=== PATIENT | male | born 1995 | race Caucasian/White ===

== ENCOUNTER 2019-10-20 15:00 | Emergency (ER) | payer OTHER ==
[~2019-10-20] VITALS: Ht 177.8 cm; Wt 59.1 kg
[2019-10-20] MEDS ORDERED: IV NORMAL SALINE 1,000ML 1,000 ML IV SCH (15:40)
--- NOTE | 2019-10-20 15:40 | PHYS DOC ---
Past History Past Medical History: No Pertinent History Past Surgical History: No Surgical History Alcohol Use: None Adult General Chief Complaint Chief Complaint: ABDOMINAL PAIN HPI HPI Patient is a 23 year old male without history of medical problem who presents with complaints of abdominal pain. Patient complains of constant epigastric sharp pain with radiation to right upper quadrant for the last 5 days that getting worse after eating and rated his pain 10 over 10. Patient complaining of episodes of nausea and 2 episodes of vomiting for the last 5 days and denies diarrhea, fever and chills, urinary symptoms, history of the same pain. Patient complaining of decrease of appetite without change of his weight. Patient was seen at urgent care today and sent to ER for evaluation Review of Systems Review of Systems Constitutional: Denies fever or chills [] Eyes: Denies change in visual acuity, redness, or eye pain [] HENT: Denies nasal congestion or sore throat [] Respiratory: Denies cough or shortness of breath [] Cardiovascular: No additional information not addressed in HPI [] GI: Reports abdominal pain, nausea, vomiting, denies bloody stools or diarrhea [] : Denies dysuria or hematuria [] Musculoskeletal: Denies back pain or joint pain [] Integument: Denies rash or skin lesions [] Neurologic: Denies headache, focal weakness or sensory changes [] Endocrine: Denies polyuria or polydipsia [] All other systems were reviewed and found to be within normal limits, except as documented in this note. Physical Exam Physical Exam Constitutional: Well developed, well nourished, mild distress, non-toxic appearance. [] HENT: Normocephalic, atraumatic, moist oral mucosa. Eyes: PERRLA, EOMI, conjunctiva normal, no discharge. [] Neck: Normal range of motion, no tenderness, supple, no stridor. [] Cardiovascular:Heart rate regular rhythm, no murmur [] Lungs & Thorax: Bilateral breath sounds clear to auscultation [] Abdomen: Bowel sounds normal, soft, right upper quadrant guarding, no tenderness, no masses, no pulsatile masses. [] Skin: Warm, dry, no erythema, no rash. [] Back: No tenderness, no CVA tenderness. [] Extremities: No tenderness, no cyanosis, no clubbing, ROM intact, no edema. [] Neurologic: Alert and oriented X 3, no focal deficits noted. [] Psychologic: Affect normal, judgement normal, mood normal. [] Current Patient Data Vital Signs Vital Signs Date Time Temp Pulse Resp B/P (MAP) Pulse Ox O2 Delivery O2 Flow Rate FiO2 10/20/19 15:28 98.1 78 16 100 Room Air EKG EKG [] Radiology/Procedures Radiology/Procedures [][address] [address] IMAGING REPORT Signed PATIENT: KIKE RIOS ACCOUNT: [id number] : 1995 LOCATION: ER AGE: 23 SEX: M EXAM STATUS: PRE ER ORD. PHYSICIAN: COLLIN MADRID MD REASON: right upper quadrant pain PROCEDURE: ABDOMEN LTD ABDOMEN LTD History: Right upper quadrant pain. Comparison: None. Technique: Transabdominal ultrasound images are obtained of the right upper quadrant. Findings: Visualized pancreas is not well seen due to overlying bowel gas. Liver is normal in echogenicity. Right hepatic lobe measures 15.5 cm. Portal flow is hepatopedal. Gallbladder has an unremarkable appearance. Common bile duct measures 1.4 mm in diameter. The right kidney measures 10.7 x 4.1 x 3.3 cm. No hydronephrosis. Visualized portions of the aorta and IVC have normal caliber. IMPRESSION: 1. Unremarkable right upper quadrant ultrasound. Electronically signed by: Bayron Das DO (10/20/2019 4:01 PM) [id number] DICTATED AND SIGNED BY: BAYRON DAS DO DATE: 10/20/19 1601 CC: COLLIN MADRID MD; PCP,UNKNOWN ~ Course & Med Decision Making Course & Med Decision Making Pertinent Labs and Imaging studies reviewed. 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 Patient had unremarkable physical exam and labs and ultrasound of gallbladder. Patient felt better with treatment in ER. Patient was advised to follow-up with his primary care radha ellisian if not getting better for further evaluation. discharge: I've spoken with the patient and/or caregivers. I've explained the patient's condition, diagnosis and treatment plan based on information available to me at this time. I've answered the patient's and/or caregivers questions and addressed any concerns. The patient and/or caregivers have a good understanding the patient's diagnosis, condition and treatment plan as can be expected at this point. Vital signs have been stabilized. The patient's condition is stable for discharge from the emergency department. The patient will pursue further outpatient evaluation with her primary care provider or other designated consulting physician as outlined in the discharge instructions. Patient and/or caregivers are agreeable to this plan of care and follow-up instructions have been explained in detail. The patient and/or caregivers have received these instructions in written format and expressed understanding of these discharge instructions. The patient and her caregivers are aware that if any significant change in condition or worsening of symptoms should prompt him to immediately return to this of the closest emergency department. If an emergent department is not readily available I would en courage him to call 911. Nia Disclaimer Dragmary jane Disclaimer This electronic medical record was generated, in whole or in part, using a voice recognition dictation system. Departure Departure: Impression: Primary Impression: Epigastric pain Disposition: HOME, SELF-CARE (at 1746) Condition: STABLE Referrals: PCP,UNKNOWN (PCP) Patient Instructions: Abdominal Pain, Nausea and Vomiting Additional Instructions: Drink plenty of liquids Follow-up with your primary care physician in 3-5 days Return to ER if not getting better Scripts Ondansetron Hcl (ZOFRAN) 4 Mg Tablet 1 TAB PO Q6HRS for nausea and vomiting, #12 TAB Prov: COLLIN MADRID MD 10/20/19 Ranitidine Hcl (ZANTAC) 150 Mg Tablet 1 TAB PO BID for dyspepcia, #14 TAB 0 Refills Prov: COLLIN MADRID MD 10/20/19 COLLIN MADRID MD Oct 20, 2019 15:40
[2019-10-20] MEDS ORDERED: FAMOTIDINE 20 MG/2 ML VIAL IVP ONE (15:45)
[2019-10-20] MEDS ORDERED: ONDANSETRON PF 4 MG/2 ML VIAL. IVP ONE (15:45)
[2019-10-20] MEDS ORDERED: FAMOTIDINE 20 MG/2 ML VIAL ONE (16:04)
[2019-10-20] MEDS ORDERED: ONDANSETRON PF 4 MG/2 ML VIAL. ONE (16:04)
--- NOTE | 2019-10-20 16:04 | RAD ---
ABDOMEN LTD History: Right upper quadrant pain. Comparison: None. Technique: Transabdominal ultrasound images are obtained of the right upper quadrant. Findings: Visualized pancreas is not well seen due to overlying bowel gas. Liver is normal in echogenicity. Right hepatic lobe measures 15.5 cm. Portal flow is hepatopedal. Gallbladder has an unremarkable appearance. Common bile duct measures 1.4 mm in diameter. The right kidney measures 10.7 x 4.1 x 3.3 cm. No hydronephrosis. Visualized portions of the aorta and IVC have normal caliber. IMPRESSION: 1. Unremarkable right upper quadrant ultrasound. Electronically signed by: Bayron Das DO (10/20/2019 4:01 PM) [id number]
[2019-10-20 16:38] LABS: BASO % 1 % (0-3); EOS # 0.1 x10^3/uL (0.0-0.7); EOS % 2 % (0-3); HEMOGLOBIN 15.5 g/dL (13.0-17.5); LYMPH % 17 % (24-48); MEAN CORPUSCULAR HEMOGLOBIN 30 pg (25-35); MEAN CORPUSCULAR HGB CONC 34 g/dL (31-37); MEAN CORPUSCULAR VOLUME 89 fL (79-100); MONO # 0.8 x10^3/uL (0.0-1.1); MONO % 14 % (0-9); NEUT % 67 % (31-73); PLATELET COUNT 248 x10^3/uL (140-400); RED BLOOD COUNT 5.19 x10^6/uL (4.30-5.70); RED CELL DISTRIBUTION WIDTH 12.7 % (11.5-14.5)
[2019-10-20 16:43] LABS: CALCIUM 9.6 mg/dL (8.5-10.1); GFR 93.4; POTASSIUM 3.9 mmol/L (3.5-5.1)
[2019-10-20 16:49] LABS: TOTAL BILIRUBIN 0.8 mg/dL (0.2-1.0); TOTAL PROTEIN 8.2 g/dL (6.4-8.2)
[2019-10-20] MEDS ORDERED: RANI-376 PO (17:49)
[2019-10-20] MEDS ORDERED: ONDA4TAB7 PO (17:49)
== END 2019-10-20 17:56 | disposition home or self-care (01) ==
LOC: ER 15:00
DX: R10.13 Epigastric pain (principal); R11.2 Nausea with vomiting, unspecified; R10.11 Right upper quadrant pain
CPT/HCPCS: 36415; 76705; 80053; 83690; 85025; 96361; 96374; 96375; 99284; J2405; J3490; J7030

== ENCOUNTER 2019-11-24 17:20 | Emergency (ER) | payer OTHER ==
[~2019-11-24] VITALS: Ht 182.9 cm; Wt 56.2 kg
[~2019-11-24 17:20] MED LIST: ONDA4TAB7 PO; RANI-376 PO
[2019-11-24] MEDS ORDERED: ONDANSETRON PF 4 MG/2 ML VIAL. ONE (17:37)
[2019-11-24] MEDS ORDERED: IV NORMAL SALINE 1,000ML 1,000 ML IV ONE (18:00)
[2019-11-24] MEDS ORDERED: ONDANSETRON PF 4 MG/2 ML VIAL. IVP ONE (18:00)
--- NOTE | 2019-11-24 18:04 | RAD ---
Exam: Chest one view INDICATION: Short of air TECHNIQUE: Frontal view of the chest Comparisons: None FINDINGS: The cardiomediastinal silhouette and pulmonary vessels are within normal limits. The lung and pleural spaces are clear. IMPRESSION: No acute cardiopulmonary process. Electronically signed by: Rosie Huddleston MD (11/24/2019 6:01 PM) [id number]
[2019-11-24 18:09] LABS: BASO % 1 % (0-3); EOS # 0.1 x10^3/uL (0.0-0.7); EOS % 1 % (0-3); HEMATOCRIT 39.3 % (39.0-53.0); HEMOGLOBIN 13.1 g/dL (13.0-17.5); LYMPH # 1.2 x10^3/uL (1.0-4.8); LYMPH % 17 % (24-48); MEAN CORPUSCULAR HEMOGLOBIN 28 pg (25-35); MEAN CORPUSCULAR HGB CONC 33 g/dL (31-37); MEAN CORPUSCULAR VOLUME 84 fL (79-100); MONO # 1.1 x10^3/uL (0.0-1.1); MONO % 15 % (0-9); NEUT % 67 % (31-73); PLATELET COUNT 355 x10^3/uL (140-400); RED BLOOD COUNT 4.71 x10^6/uL (4.30-5.70); RED CELL DISTRIBUTION WIDTH 12.4 % (11.5-14.5); WHITE BLOOD COUNT 7.5 x10^3/uL (4.0-11.0)
[2019-11-24 18:14] LABS: CALCIUM 9.6 mg/dL (8.5-10.1); CREATININE 0.9 mg/dL (0.7-1.3); GFR 104.6; POTASSIUM 3.7 mmol/L (3.5-5.1)
--- NOTE | 2019-11-24 18:15 | PHYS DOC ---
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 No fever. Symptom onset was approximately one week ago. Chest pain is worse with deep breathing. No history of asthma. No lower abdominal pain. No other acute symptoms or complaints.[] Review of Systems Review of Systems ROS as per HPI All other systems were reviewed and found to be within normal limits, except as documented in this note. Current Medications Current Medications Current Medications Medications (Trade) Dose Ordered Sig/Catalina Start Time Stop Time Status Last Admin Dose Admin Ondansetron HCl (Zofran) 4 mg STK-MED ONCE 11/24/19 17:37 11/24/19 17:37 DC Sodium Chloride 1,000 ml @ 1,000 mls/hr 1X ONCE 11/24/19 18:00 11/24/19 18:59 11/24/19 17:48 1,000 MLS/HR Allergies Allergies Allergies Coded Allergies Type Severity Reaction Last Updated Verified No Known Drug Allergies 11/24/19 No Physical Exam Physical Exam Constitutional: Well developed, well nourished, no acute distress, non-toxic appearance. [] HENT: Normocephalic, atraumatic, bilateral external ears normal, oropharynx moist, nose normal. [] Eyes: PERRLA, EOMI, conjunctiva normal. [] Neck: Normal range of motion, no tenderness, supple. [] Cardiovascular:Heart rate regular rhythm, no murmur [] Lungs & Thorax: Bilateral breath sounds clear. [] Abdomen: Bowel sounds normal, soft, no tenderness. [] Skin: Warm, dry, no erythema. [] Back: No tenderness. [] Extremities: No tenderness, no edema. [] Neurologic: Alert and oriented X 3, normal motor function, normal sensory function, no focal deficits noted. [] Psychologic: Affect normal, judgement normal, mood normal. [] Current Patient Data Vital Signs Vital Signs Date Time Temp Pulse Resp B/P (MAP) Pulse Ox O2 Delivery O2 Flow Rate FiO2 11/24/19 18:08 70 18 157/88 (111) 100 Room Air 11/24/19 17:26 98.9 Lab Results Laboratory Tests Test 11/24/19 17:45 White Blood Count 7.5 x10^3/uL (4.0-11.0) Red Blood Count 4.71 x10^6/uL (4.30-5.70) Hemoglobin 13.1 g/dL (13.0-17.5) Hematocrit 39.3 % (39.0-53.0) Mean Corpuscular Volume 84 fL (79-100) Mean Corpuscular Hemoglobin 28 pg (25-35) Mean Corpuscular Hemoglobin Concent 33 g/dL (31-37) Red Cell Distribution Width 12.4 % (11.5-14.5) Platelet Count 355 x10^3/uL (140-400) Neutrophils (%) (Auto) 67 % (31-73) Lymphocytes (%) (Auto) 17 % (24-48) L Monocytes (%) (Auto) 15 % (0-9) H Eosinophils (%) (Auto) 1 % (0-3) Basophils (%) (Auto) 1 % (0-3) Neutrophils # (Auto) 5.0 x10^3uL (1.8-7.7) Lymphocytes # (Auto) 1.2 x10^3/uL (1.0-4.8) Monocytes # (Auto) 1.1 x10^3/uL (0.0-1.1) Eosinophils # (Auto) 0.1 x10^3/uL (0.0-0.7) Basophils # (Auto) 0.0 x10^3/uL (0.0-0.2) EKG EKG [] Radiology/Procedures Radiology/Procedures [CXR: NAD] Course & Med Decision Making Course & Med Decision Making Pertinent Labs and Imaging studies reviewed. (See chart for details) [Work up in progress. Care endorsed to oncoming ERP at 18:00] Dragon Disclaimer Dragon Disclaimer This electronic medical record was generated, in whole or in part, using a voice recognition dictation system. Departure Departure: Disposition: 01 HOME/RESIDENCE PRIOR TO ADM Condition: GLADYS HILL DO Nov 24, 2019 18:15
[2019-11-24 18:19] LABS: ALBUMIN 3.2 g/dL (3.4-5.0); ALBUMIN/GLOBULIN RATIO 0.6 (1.0-1.7); TOTAL BILIRUBIN 0.7 mg/dL (0.2-1.0); TOTAL PROTEIN 8.5 g/dL (6.4-8.2)
[2019-11-24 18:25] LABS: BILIRUBIN,URINE NEG (NEG); CLARITY,URINE CLEAR; COLOR,URINE YELLOW; GLUCOSE,URINE NEG (NEG)
[2019-11-24 18:26] LABS: BACTERIA,URINE 0 /HPF (0-FEW); NITRITE,URINE NEG (NEG); RBC,URINE RARE /HPF (0-2); SQUAMOUS EPITHELIAL CELL,UR OCC /LPF; UROBILINOGEN,URINE 0.2 mg/dL (0.2 mg/dL); WBC,URINE 0 /HPF (0-4)
--- NOTE | 2019-11-24 18:26 | EKG ---
[address] [address] Test Date: 2019-11-24 Test Time: 18:11:58 Pat Name: KIKE RIOS Department: Room: Gender: M Brush [employer]her: : 1995 Requested By: GLADYS HEMPHILL Order Number: [id number] Reading MD: Greg Sequeira MD Measurements Intervals Newborn Rate: 89 P: 62 MA: 128 QRS: 85 QRSD: 82 T: 39 QT: 330 QTc: 402 Interpretive Statements SINUS RHYTHM Electronically Signed On 11-26-2019 8:37:56 CDT by Greg Sequeira MD
[2019-11-24] MEDS ORDERED: CONTRAST GIVEN MC PRN (18:30)
[2019-11-24] MEDS ORDERED: IOHEXOL 350 MG/ML 100 ML VIAL. IV ONE (18:45)
--- NOTE | 2019-11-24 19:08 | RAD ---
Exam: CT of chest, abdomen and pelvis with contrast INDICATION: Right-sided chest and abdominal pain, radiating to back of neck TECHNIQUE: Sequential axial images through the chest, abdomen and pelvis obtained following the administration of 98 mL of Isovue-370 IV contrast. Sagittal and coronal reformatted images were reconstructed from the axial data and reviewed. 3-D reformatted images were reconstructed from the axial data and reviewed. Comparisons: None FINDINGS: Visualized portions of the thyroid are unremarkable. Prominent right hilar, subcarinal and right paratracheal lymphadenopathy is noted. Heart size is normal. No pericardial effusion. Thoracic aorta has a normal course and caliber. Pulmonary artery is nonenlarged. No pulmonary embolus identified within the main, lobar or segmental pulmonary arteries are identified. Airways are patent. No consolidation or pneumothorax. No suspicious lung nodules. No pleural effusion or thickening. Hypoattenuating subcentimeter lesion within the right hepatic lobe incompletely characterized on this study. Spleen, pancreas, gallbladder and adrenals are unremarkable. Kidneys demonstrate symmetric enhancement. No perinephric inflammation or hydronephrosis. No renal or ureteral calculi are identified. Bladder is decompressed not well evaluated. Prostate is not enlarged. Large and small bowel are unremarkable. Appendix is not identified. No free intra-abdominal air or fluid. No obstruction. Abdominal aorta has a normal course and caliber. Abdominal vasculature is patent. No enlarged intra-abdominal lymph nodes are identified. No suspicious osseous lesions or acute fractures. IMPRESSION: 1. No pulmonary embolus identified within the main, lobar or segmental pulmonary arteries. 2. Right hilar, subcarinal and right paratracheal lymphadenopathy, which is nonspecific and may be reactive to an underlying infectious or inflammatory process. Correlate with malignancy history. Short-term follow-up imaging in 4-6 weeks to evaluate for resolution is recommended. 3. No acute process identified within the abdomen or pelvis. Exposure: One or more of the following in the visualized dose reduction techniques were utilized for this examination: 1. Automated exposure control 2. Adjustment of the MA and/or KV according to patient size 3. Use of iterative of reconstructive technique Electronically signed by: Rosie Huddleston MD (11/24/2019 7:05 PM) [id number]
[2019-11-24] MEDS ORDERED: HYDR-3165 PO (19:21)
[2019-11-24 19:25] VITALS: BP 122/72
[2019-11-24] MEDS ORDERED: KETOROLAC 30 MG/ML VIAL. IVP ONE (19:45)
== END 2019-11-24 19:48 | disposition home or self-care (01) ==
LOC: ER 17:20
DX: R11.2 Nausea with vomiting, unspecified (principal); R07.89 Other chest pain; R05 Cough; R61 Generalized hyperhidrosis; F17.200 Nicotine dependence, unspecified, uncomplicated; Z90.89 Acquired absence of other organs
CPT/HCPCS: 36415; 71045; 71275; 74177; 80053; 81001; 82728; 84145; 85025; 85379; 86140; 93005; 96361; 96374; 96375; 99285; J1885; J2405; Q9967; J7030